=== PATIENT | female | born 1995 | race Caucasian/White ===

== ENCOUNTER 2016-11-16 21:42 | Outpatient (CLI) | payer MEDICAID ==
[~2016-11-16] VITALS: Ht 157.5 cm; Wt 82.3 kg
[~2016-11-16 21:42] MED LIST: IBUP-1542 PO
[2016-11-16 22:06] VITALS: Ht 157.5 cm; Wt 82.3 kg
[2016-11-16 22:07] VITALS: BP 116/59; PULSE 18; RESP 18
[2016-11-16] MEDS ORDERED: FER325 PO (22:54)
[2016-11-16] MEDS ORDERED: PREN1TAB13 PO (22:54)
[2016-11-17] MEDS ORDERED: TERBUTALINE 1 ML ONE (00:22)
[2016-11-17] MEDS ORDERED: LACTATED RINGER'S 1,000 ML IV ONE ×2 (00:30→03:00)
[2016-11-17] MEDS ORDERED: TERBUTALINE 1 MG/ML INJ SC ONE (00:30)
[2016-11-17 01:25] LABS: ADD UMIC YES; URINE BILIRUBIN (Dip) NEGATIVE (NEGATIVE); URINE BLOOD (Dip) TRACE (NEGATIVE); URINE COLOR LT. YELLOW (YELLOW); URINE GLUCOSE (Dip) NEGATIVE (NEGATIVE); URINE KETONES (Dip) NEGATIVE (NEGATIVE); URINE LEUKOCYTE ESTERASE (Dip) NEGATIVE (NEGATIVE); URINE NITRITE (Dip) NEGATIVE (NEGATIVE); URINE TOTAL PROTEIN (Dip) NEGATIVE (NEGATIVE); URINE UROBILINOGEN (Dip) 2.0 E.U./dL (0.1-1.0)
[2016-11-17 01:57] LABS: BACTERIA,URINE OCCASIONAL; SQUAMOUS EPITHELIAL CELL,UR MODERATE
--- NOTE | 2016-11-17 03:03 | QN ---
Documentation Comment Laborist Dr Kathleen/[facility] [address] pt 21 y.o. A3 with an IUP at 35 weeks c/o contractions since 1400 11/16. No VB or leaking. +FM. PMHx: h/o HTN? PSHx: C/S x 3. NKDA. BP 116/59 T=98.4 U/A negative, but very dark. NST: baseline 130-140 bpm with accels to 160 bpm. No decels. UC's q 7 to 10 minutes. Pt was given IV hydration and one dose of terbutaline and her contractions spaced out a lot and the pt reports feeling much better. A: IUP at 35w. False labor. P: continue to try to increase her water intake, 6-8 glasses/day. PTL precautions reviewed. FRANCO GRAFF MD November 17, 2016 03:03
--- NOTE | 2016-11-17 04:22 | TRIAGE ---
OB Triage Datetime Report Generated by CPN: 11/17/2016 04:22 Datetime: 11/17/2016 02:30 Labor Evaluation Frequency: x1 Monitor Mode: External Duration (sec)2399: 50 Pattern: Normal: <= 5 Contractions in 10 Minutes Resting Tone [place]: Relaxed Heart Rate FHR Baseline Rate: 135 Monitor Mode: External US FHR Baseline Changes: No Baseline Change Variability: Moderate 6-25 bpm Accelerations: 15X15 Decelerations: None Category: Category I Datetime: 11/17/2016 00:44 Membrane Status: Intact Datetime: 11/17/2016 00:30 Labor Evaluation Frequency: 5 Monitor Mode: External Duration (sec)2399: 90-100 Quality: Mild Pattern: Normal: <= 5 Contractions in 10 Minutes Resting Tone [place]: Relaxed Heart Rate FHR Baseline Rate: 145 Monitor Mode: External US FHR Baseline Changes: No Baseline Change Variability: Moderate 6-25 bpm Accelerations: 15X15 Decelerations: Variable Category: Category II Datetime: 11/16/2016 23:36 Stage of : OB Triage Labor Evaluation Frequency: 6-9 Monitor Mode: External Duration (sec)2399: 80-110 Quality: Moderate Pattern: Normal: <= 5 Contractions in 10 Minutes Resting Tone [place]: Relaxed Heart Rate FHR Baseline Rate: 140 Monitor Mode: External US Variability: Moderate 6-25 bpm Accelerations: 15X15 Decelerations: None Category: Category I Datetime: 11/16/2016 23:15 Stage of : OB Triage Datetime: 11/16/2016 22:48 Stage of : OB Triage Labor Evaluation Frequency: IRREGULAR Monitor Mode: External Duration (sec)2399: 80-110 Quality: Moderate Pattern: Normal: <= 5 Contractions in 10 Minutes Resting Tone [place]: Relaxed Heart Rate FHR Baseline Rate: 145 Monitor Mode: External US Variability: Moderate 6-25 bpm Accelerations: 15X15 Decelerations: None Category: Category I Datetime: 11/16/2016 22:34 Vaginal Exam Dilatation (cms): 0.0 Effacement (%): 0 Station: -3 Exam By: Jeanne CLINTON RN Vaginal Bleeding: None Cervix, Consistency: Firm Cervix, Position: Posterior Datetime: 11/16/2016 22:26 Stage of : OB Triage EGA: 34.6 Maternal Assessment Level of Consciousness: Fully Conscious DTR's/Clonus: DTRs 2+; No Clonus Headache: Denies Blurred Vision: No Respiratory Effort: Unlabored; Regular Rhythm; Equal Expansion Breath Sounds, Left: Clear and Equal Breath Sounds, Right: Clear and Equal Nausea/Vomiting: Denies RUQ Epigastric Pain: Denies Lower Extremities Edema: None Upper Extremities Edema: None Facial Edema: None Temperature Route: Oral Fall Risk Assessment History of Falling: (0) No Secondary Diagnosis: (0) No Ambulatory Aid: (0) Bedrest/Nurse Assist IV Therapy: (0) No Gait: (0) Normal/Bedrest/Immobile Mental Status: (0) Oriented to Own Ability Fall Score: 0 Fall Risk Score Definition: No Risk: No action required Monitor Mode: External Duration (sec)2399: IRREGULAR Quality: Moderate Pattern: Normal: <= 5 Contractions in 10 Minutes Heart Rate FHR Baseline Rate: 140 Monitor Mode: External US Variability: Moderate 6-25 bpm Accelerations: 15X15 Decelerations: None Category: Category I Pain Assessment Pain Scale: 6 Pain Presence: Intermittent Pain Type: Contraction Pain Location: Abdomen Pain Goal: 3 Datetime: 11/16/2016 22:25 Stage of : OB Triage Assessment Type: Triage Vaginal Exam Dilatation (cms): 0.0 Effacement (%): 0 Station: -3 Exam By: RN Datetime: 11/16/2016 22:24 Time of Arrival: 11/16/2016 21:55 Arrived By: Wheelchair Arrived From: Home Chief Complaint: PT C/O ABDOMEN PAIN Movement: Present Contractions: Regular Time Contractions Began: 11/16/2016 14:00 Rupture of Membranes: Denies Vaginal Bleeding: None Vaginal Discharge: Denies Recent Sexual Intercouse: Denies Abdominal Trauma: Not Applicable Patient Complaints: Contractions Additional Patient Complaints: INITIAL PHYSICAL ASSESSMENT, TOCO AND EFM APPLIED. Time Provider Notified: 11/17/2016 00:20 Provider Notified: DR. GRAFF Initial Plan: UA, IV BOLUS, TERBUTALINE X1 Datetime: 11/16/2016 22:05 Stage of : OB Triage
== END 2016-11-17 03:30 | disposition home health service (06) ==
LOC: L-D 21:42 → OBT 21:42
PROVIDERS: ATTEND Obstetrics & Gynecology
DX: O47.03 False labor before 37 completed weeks of gestation, third trimester (principal); Z3A.35 35 weeks gestation of pregnancy
CPT/HCPCS: 81001; 87086; 96365; J3105; J7120; Z7500; 81003; G0463

== ENCOUNTER 2016-11-26 23:03 | Inpatient (IN) | payer MEDICAID ==
[~2016-11-26] VITALS: Ht 157.5 cm; Wt 89.4 kg
[~2016-11-26 23:03] MED LIST changes: +FER325 PO; +PREN1TAB13 PO
[2016-11-26 23:19] VITALS: Ht 157.5 cm; Wt 89.4 kg
[2016-11-26] MEDS ORDERED: PREN1TAB79 PO (23:19)
[2016-11-26] MEDS ORDERED: FOLI0.8C PO (23:19)
--- NOTE | 2016-11-26 23:35 | HP ---
Date/Time of Note Date/Time of Note DATE: 11/26/16 TIME: 23:28 OB - History Hx of Present Free Text/Dictation Laborist Note 21 YO with IUP at 36.1 weeks and h/o c/s x 3 reports to L&D with c/o UCs. she denies VB or LOF per vagina. she reports good FM. Care: Good Care Ultrasounds: Normal mid trimester US Obstetrical Complications: None Medical Complications: None Past Family/Social History * Past Medical, Surgical, Family and Obstetric Histories reviewed from chart. OB Admission Exam Physical Exam HEENT: WNL Heart: Rhythm Normal Lungs: Clear, Equal Abdomen: WNL Extremities: Normal Reflexes: Normal Cervical Dilatation: None OB Assessment/Plan Other Assessment: 21 YO with IUP at 36.1 weeks and h/o c/s x 3 reports to L&D with c/o UCs. she denies VB or LOF per vagina. she reports good FM. Other plan: IV Hydration Procardia Admit for observation possible need for premature d/w pt will start steroids (she is not diabetic and never had steroids) CONSTANZA BAKER MD November 26, 2016 23:35
[2016-11-27] VITALS (8 sets, daily range): BP systolic 91–126; BP diastolic 44–68; PULSE 75–108; RESP 18–20
[2016-11-27] MEDS ORDERED: morphine 10 MG INJ IM PRN
[2016-11-27] MEDS ORDERED: BETAMET NA PHOS/AC(6 MG/ML) 5ML INJ IM ONE
[2016-11-27] MEDS ORDERED: OXYTOCIN 30 UNITS/LR 500 ML IV SCH
[2016-11-27] MEDS ORDERED: CEFAZOLIN 2 GM/50 ML (PMX) 50 ML IV SCH
[2016-11-27] MEDS ORDERED: LACTATED RINGER'S 1,000 ML IV ONE
--- NOTE | 2016-11-27 00:24 | RADRPT ---
PROCEDURE: Obstetrical ultrasound greater than 14 weeks CLINICAL INDICATION: labor TECHNIQUE: Real time sonographic imaging of the gravid uterus is performed transabdominally and mu ltiple static joshua scale and Doppler images are submitted for review as are measurements. The image s are reviewed on the PACS. COMPARISON: No relevant exams are available FINDINGS: There is a single living intrauterine gestation in cephalic presentation. The heart beat is estimated at 157 bpm. The measurements are as follows: BPD:8.65 cm HC:41.78 cm AC:34.14 cm FL:7.40 cm Estimated gestational age is 36 weeks 4 days. The estimated date of delivery is 12/20/2016. The estimated weight is 3184 grams. Placenta is posterior and gradeII. There is no evidence of placenta previa or abruption. RPTAT:HJJR IMPRESSION: 1. Single viable intrauterine gestation in cephalic presentation estimated at 36 weeks 4 days with t he estimated date of delivery 12/20/2016. 2. Estimated weight 3184 g (7 pounds). Physician Estrellita Date Time Electronically viewed and signed by Physician Estrellita on 11/27/2016 00:24 JR/
[2016-11-27] MEDS: NIFEdipine 10 MG CAP PO SCH ×2 (00:37→01:46)
[2016-11-27 00:40] LABS: ADD SCAN DIFF NO
[2016-11-27 00:42] LABS: BASOPHILS % 0.2 % (0.0-2.0); EOSINOPHILS # 0.1 10^3/ul (0.0-0.5); EOSINOPHILS % 1.4 % (0.0-7.0); HEMOGLOBIN 11.2 g/dl (12.0-16.0); LYMPHOCYTES # 1.6 10^3/ul (0.8-2.9); LYMPHOCYTES % 17.2 % (15.0-51.0); MEAN CORPUSCULAR HGB CONC 33.9 g/dl (32.0-37.0); MEAN CORPUSCULAR VOLUME 85.5 fl (82.0-101.0); MONOCYTE # 0.5 10^3/ul (0.3-0.9); MONOCYTES % 5.6 % (0.0-11.0); NEUTROPHIL # 6.9 10^3/ul (1.6-7.5); NEUTROPHILS % 75.2 % (39.0-77.0); PLATELET COUNT 262 10^3/UL (140-415); RED BLOOD COUNT 3.86 10^6/ul (4.20-5.40); RED CELL DISTRIBUTION WIDTH 13.2 % (11.5-14.5); WHITE BLOOD COUNT 9.2 10^3/ul (4.8-10.8)
[2016-11-27 00:55] LABS: INR 0.9; PARTIAL THROMBOPLASTIN TIME 24.8 Sec (25.0-35.0); PROTIME 12.1 Sec (12.2-14.2); PT RATIO 0.9
[2016-11-27 01:10] LABS: ADD UMIC NO; URINE BILIRUBIN (Dip) NEGATIVE (NEGATIVE); URINE BLOOD (Dip) NEGATIVE (NEGATIVE); URINE COLOR YELLOW (YELLOW); URINE GLUCOSE (Dip) NEGATIVE (NEGATIVE); URINE KETONES (Dip) NEGATIVE (NEGATIVE); URINE LEUKOCYTE ESTERASE (Dip) NEGATIVE (NEGATIVE); URINE NITRITE (Dip) NEGATIVE (NEGATIVE); URINE TOTAL PROTEIN (Dip) NEGATIVE (NEGATIVE); URINE UROBILINOGEN (Dip) 0.2 E.U./dL (0.1-1.0)
[2016-11-27] MEDS ORDERED: NIFEdipine 10 MG CAP PO ONE (02:00)
[2016-11-27] MEDS: LACTATED RINGER'S 1,000 ML IV SCH ×2 (04:07→07:45)
--- NOTE | 2016-11-27 04:28 | TRIAGE ---
OB Triage Datetime Report Generated by CPN: 11/27/2016 04:28 Datetime: 11/27/2016 04:00 Labor Evaluation Frequency: 2-11 Monitor Mode: External Duration (sec)2399: 40-120 Quality: Moderate Pattern: Normal: <= 5 Contractions in 10 Minutes Resting Tone [place]: Relaxed Heart Rate FHR Baseline Rate: 135 Monitor Mode: External US FHR Baseline Changes: No Baseline Change Variability: Moderate 6-25 bpm Accelerations: 10X10 Decelerations: None Category: Category I Comments: Moderate variability with periods of minimal variability. Loss of FHR contact d/t pt mov ement with UCs and pt obesity. Datetime: 11/27/2016 03:28 Stage of : Labor Assessment Type: Ongoing Assessment Maternal Assessment Level of Consciousness: Fully Conscious DTR's/Clonus: DTRs 2+; No Clonus Headache: Denies Blurred Vision: No Respiratory Effort: Unlabored; Regular Rhythm; Equal Expansion Breath Sounds, Left: Clear and Equal Breath Sounds, Right: Clear and Equal Nausea/Vomiting: Denies RUQ Epigastric Pain: Denies Lower Extremities Edema: None Degree: None Upper Extremities Edema: None Degree: None Facial Edema: None Fall Risk Assessment History of Falling: (0) No Secondary Diagnosis: (0) No Ambulatory Aid: (0) Bedrest/Nurse Assist IV Therapy: (20) Yes Gait: (0) Normal/Bedrest/Immobile Mental Status: (0) Oriented to Own Ability Fall Score: 20 Fall Risk Score Definition: No Risk: No action required Pain Assessment Pain Scale: 10 Pain Presence: Intermittent Pain Type: Contraction; Pressure Pain Location: Abdomen; Back Pain Goal: 2 Pain Relief Measures: Comfort Measures Pain Assessment Comments: Pt states that pain medications have been ineffective. Datetime: 11/27/2016 03:02 Stage of : Labor Datetime: 11/27/2016 02:16 Assessment Type: Admission Assessment Vaginal Bleeding: None Maternal Assessment Level of Consciousness: Fully Conscious DTR's/Clonus: DTRs 2+; No Clonus Headache: Denies Blurred Vision: No Respiratory Effort: Unlabored; Regular Rhythm; Equal Expansion Breath Sounds, Left: Clear and Equal Breath Sounds, Right: Clear and Equal Nausea/Vomiting: Denies RUQ Epigastric Pain: Denies Facial Edema: None Fall Risk Assessment History of Falling: (0) No Secondary Diagnosis: (0) No Ambulatory Aid: (0) Bedrest/Nurse Assist Gait: (0) Normal/Bedrest/Immobile Mental Status: (0) Oriented to Own Ability Pain Assessment Pain Scale: 9 Pain Presence: Intermittent Pain Type: Contraction Pain Location: Abdomen; Back Pain Goal: 2 Datetime: 11/27/2016 02:00 Labor Evaluation Frequency: irregular Monitor Mode: External Quality: Moderate Pattern: Normal: <= 5 Contractions in 10 Minutes Resting Tone [place]: Relaxed Contraction Comments: unable to rock picker uc's, pain in back Heart Rate FHR Baseline Rate: 145 Monitor Mode: External US FHR Baseline Changes: No Baseline Change Variability: Moderate 6-25 bpm Accelerations: 15X15 Decelerations: None Category: Category I Datetime: 11/27/2016 00:59 Labor Evaluation Frequency: 8 Monitor Mode: External Duration (sec)2399: 50-70 Quality: Moderate Pattern: Normal: <= 5 Contractions in 10 Minutes Resting Tone [place]: Relaxed Heart Rate FHR Baseline Rate: 145 Monitor Mode: External US FHR Baseline Changes: No Baseline Change Variability: Moderate 6-25 bpm Accelerations: 15X15 Decelerations: None Category: Category I Datetime: 11/26/2016 23:59 Labor Evaluation Frequency: 2-8 Monitor Mode: External Duration (sec)2399: 40-120 Quality: Moderate Pattern: Normal: <= 5 Contractions in 10 Minutes Resting Tone [place]: Relaxed Heart Rate FHR Baseline Rate: 145 Monitor Mode: External US FHR Baseline Changes: No Baseline Change Variability: Moderate 6-25 bpm Accelerations: 15X15 Decelerations: None Category: Category I Datetime: 11/26/2016 23:15 Stage of : OB Triage Vaginal Exam Dilatation (cms): 0.5 Effacement (%): 60 Station: -2 Exam By: PADILLA Rodriguez Membrane Status: Intact Vaginal Bleeding: None Datetime: 11/26/2016 23:11 Stage of : OB Triage Assessment Type: Triage Maternal Assessment Level of Consciousness: Fully Conscious DTR's/Clonus: DTRs 2+; No Clonus Headache: Temporal; Bilateral; Frontal Blurred Vision: No Respiratory Effort: Unlabored; Regular Rhythm; Equal Expansion Breath Sounds, Left: Clear and Equal Breath Sounds, Right: Clear and Equal Nausea/Vomiting: Denies RUQ Epigastric Pain: Denies Lower Extremities Edema: None Degree: None Upper Extremities Edema: None Degree: None Facial Edema: None Temperature Route: Oral Fall Risk Assessment History of Falling: (0) No Secondary Diagnosis: (0) No Ambulatory Aid: (0) Bedrest/Nurse Assist IV Therapy: (0) No Gait: (0) Normal/Bedrest/Immobile Mental Status: (0) Oriented to Own Ability Fall Score: 0 Fall Risk Score Definition: No Risk: No action required Pain Assessment Pain Scale: 9 Pain Presence: Intermittent Pain Type: Cramping; Contraction Pain Location: Abdomen; Back Pain Relief Measures: Comfort Measures Datetime: 11/26/2016 23:10 Monitor Mode: External Contraction Comments: [place] applied Heart Rate FHR Baseline Rate: 150 Monitor Mode: External US Comments: EFM applied Datetime: 11/26/2016 23:09 Time of Arrival: 11/26/2016 22:59 EGA: 36.2 Arrived By: Wheelchair Arrived From: Home Movement: Present Contractions: Regular Time Contractions Began: 11/26/2016 19:00 Contractions: q5mins Rupture of Membranes: Denies Vaginal Bleeding: None Vaginal Discharge: Denies Abdominal Trauma: Not Applicable Patient Complaints: Contractions; Cramping; Back Pain Time Provider Notified: 11/26/2016 23:20 Provider Notified: Initial Plan: EFM x2, VE Datetime: 11/16/2016 22:26 EGA: 34.6 Fall Score: 0 Fall Risk Score Definition: No Risk: No action required
[2016-11-27] MEDS ORDERED: CITRIC ACID/NA CITRATE 30 ML CUP PO ONE (07:30)
[2016-11-27] MEDS ORDERED: CITRIC ACID/SODIUM CITRATE 15 ML CUP ONE (07:34)
[2016-11-27] MEDS ORDERED: morphine SULFATE/PF (10 MG/10 ML) INJ ONE (07:35)
[2016-11-27] MEDS ORDERED: METOCLOPRAMIDE 10 MG INJ ONE (07:35)
[2016-11-27] MEDS ORDERED: KETOROLAC 30 MG INJ ONE (07:35)
[2016-11-27] MEDS ORDERED: EPHEDrine SULFATE 50 MG/5 ML SYG ONE (08:38)
[2016-11-27] MEDS ORDERED: FENTAnyl 50 MCG/ML VIAL ONE (09:29)
[2016-11-27] MEDS ORDERED: MIDAZOLAM 1 MG/ML 2 ML INJ ONE (09:29)
[2016-11-27] MEDS ORDERED: MEPERIDINE 25 MG INJ IV PRN (09:30)
[2016-11-27] MEDS ORDERED: ONDANSETRON 4 MG INJ IV PRN ×2 (09:30→10:00)
[2016-11-27] MEDS ORDERED: METOCLOPRAMIDE 10 MG INJ IV PRN (09:30)
[2016-11-27] MEDS ORDERED: DIPHENHYDRAMINE 50 MG INJ IV PRN ×2 (09:30→10:00)
[2016-11-27] MEDS ORDERED: HYDROmorphONE (0.2 MG/ML) 10ML SYG IV PRN ×3 (09:30)
[2016-11-27] MEDS ORDERED: KETOROLAC 30 MG INJ IV PRN (10:00)
[2016-11-27] MEDS ORDERED: NALOXONE (0.4 MG/ML) INJ IV PRN (10:00)
[2016-11-27] MEDS ORDERED: HYDROmorphONE 1 MG/ML SYG IV PRN ×3 (10:00)
--- NOTE | 2016-11-27 10:53 | OPR ---
DATE OF OPERATION: 11/27/2016 PREOPERATIVE DIAGNOSES: 1. Intrauterine at 36 weeks and 4 days. 2. History of three previous sections in active labor. POSTOPERATIVE DIAGNOSES: 1. Intrauterine at 36 weeks and 3 days. 2. History of three previous sections, in active labor. PROCEDURE: Repeat transverse low cervical section for the 4th time. SURGEON: Nasrin Kathleen MD [employer]: Shawnee Chester MD ANESTHESIA: Spinal. ANESTHESIOLOGIST: Juany Barraza MD FINDINGS: Live baby boy, 9 and 9. Baby weighed 3020 grams, 6 pounds 11 ounces. DETAILS OF THE PROCEDURE: Under satisfactory spinal anesthesia, the patient was prepped and draped and placed in supine position, tilted to the left. Pfannenstiel incision was made. Old scar was re moved. Incision carried through the subcutaneous tissue. Bleeders brought under control with elect rocautery. Fascia incised to the length of the incision. Rectus muscle divided in midline. Perito neum exposed. Upon entry into the abdomen, noted the lower segment of the uterus was extremely thin kinza out to the thickness of 1 to 2 mm. Bladder flap was developed. Transverse incision was made in the lower segment of the uterus. Amniotic sac ruptured. Clear amniotic fluid noted. Live baby mariam y was delivered from unengaged vertex with a nuchal cord around the baby's neck tight. Nasal oropha ryngeal suction was performed. Baby handed to the team for immediate attention. Patient r eceived 20 units of Pitocin. Placenta delivered manually intact. Uterine cavity cleaned with wet s ponge and drainage established. Uterus closed in 2 layers using Monocryl #1 in continuous fashion. Peritoneal cavity irrigated with warm saline. Sponge, needle and instrument reported to be correct . Abdominal peritoneum closed with 2-0 chromic catgut continuously. Rectus muscle approximated wit h 2 interrupted 2-0 chromic catgut. Fascia closed with #1 PDS in a continuous fashion. Subcutaneou s tissue approximated with 2-0 chromic catgut. Skin closed with tata. Estimated blood loss 600 mL. Urine bag contained 200 mL of clear urine. Patient tolerated procedure well, transferred to re covery room in a good condition. Dictated By: NASRIN LIM/NTS Conf#: [id number] DID#: [id number] CC: SHAWNEE CHESTER MD;*End*
[2016-11-27] MEDS ORDERED: OXYCODONE/ACETAMINOPHEN (5/325) TAB PO PRN (13:30)
[2016-11-27] MEDS ORDERED: CEFAZOLIN 1 GM/50 ML (PMX) 50 ML IVPB SCH (13:30)
[2016-11-27] MEDS ORDERED: MISOPROSTOL 200 MCG TAB PR PRN ×2 (13:30)
[2016-11-27] MEDS ORDERED: ACETAMINOPHEN/CODEINE #3 TAB PO PRN ×2 (13:30)
[2016-11-27] MEDS ORDERED: CARBOPROST 250 MCG INJ IM PRN ×2 (13:30)
[2016-11-27] MEDS ORDERED: LANOLIN 7 GM TUBE TOP PRN (13:30)
[2016-11-27] MEDS ORDERED: OXYTOCIN 30 UNITS/LR 500 ML IV PRN ×2 (13:30)
[2016-11-27] MEDS ORDERED: METHYLERGONOVINE 0.2 MG INJ IM PRN ×2 (13:30)
[2016-11-27] MEDS: OXYTOCIN 30 UNITS/LR 500 ML IV SCH ×2 (14:32→20:04)
--- NOTE | 2016-11-27 16:21 | PD.PPDC ---
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 Discharge Instruction Condition Patient Condition: Good Diet Diet: Resume Regular Diet Activity/Restrictions Activity: Normal Activity May Shower Restrictions: No Exercising No Lifting No Driving No Sexual Activity Nothing in the Vagina No [place] No Tampons, douche Follow-up Follow-up with Physician: 2, Week/Weeks Provider Information: Appointment clinic in 2 weeks for checkup Return to clinic for [facility]ER Instructions: Fever greater than 101 Worsening abdominal pain Excessive Vaginal Bleeding More than 2 pads per hour Unable to tolerate diet OB Instructions: Breast Tenderness Depression Blurried Vision Headache NASRIN CLARKE MD November 27, 2016 16:21
[2016-11-27] MEDS: SENNA/DOCUSATE NA (8.6MG/50MG) TAB PO SCH (20:39)
[2016-11-28] VITALS: BP 100/52; PULSE 70; RESP 18
[2016-11-28] MEDS: LACTATED RINGER'S 1,000 ML IV SCH ×3 (00:13→15:30)
[2016-11-28 04:25] VITALS: BP 98/50; PULSE 84; RESP 16
[2016-11-28] MEDS: IBUPROFEN 600 MG TAB PO SCH ×4 (06:00→23:32)
[2016-11-28 08:16] LABS: ADD SCAN DIFF NO
[2016-11-28 08:22] LABS: BASOPHILS % 0.1 % (0.0-2.0); EOSINOPHILS % 0.3 % (0.0-7.0); HEMATOCRIT 26.9 % (37.0-47.0); HEMOGLOBIN 8.8 g/dl (12.0-16.0); LYMPHOCYTES # 1.4 10^3/ul (0.8-2.9); LYMPHOCYTES % 15.3 % (15.0-51.0); MEAN CORPUSCULAR HEMOGLOBIN 28.7 pg (29.0-33.0); MEAN CORPUSCULAR HGB CONC 32.7 g/dl (32.0-37.0); MEAN CORPUSCULAR VOLUME 87.6 fl (82.0-101.0); MONOCYTE # 0.6 10^3/ul (0.3-0.9); MONOCYTES % 6.5 % (0.0-11.0); NEUTROPHILS % 77.1 % (39.0-77.0); PLATELET COUNT 217 10^3/UL (140-415); RED BLOOD COUNT 3.07 10^6/ul (4.20-5.40); RED CELL DISTRIBUTION WIDTH 13.5 % (11.5-14.5); WHITE BLOOD COUNT 9.1 10^3/ul (4.8-10.8)
[2016-11-28 08:30] VITALS: BP 107/52; PULSE 89; RESP 18
--- NOTE | 2016-11-28 09:40 | PN ---
Date/Time of Note Date/Time of Note DATE: 11/28/16 TIME: 09:39 OB Subjective Subjective Subjective Post day 1 Afebrile vital signs stable abdomen soft lochia moderate bowel sounds present incision dry extremities normal ambulation encouraged NASRIN CLARKE MD November 28, 2016 09:40
[2016-11-28] MEDS: SENNA/DOCUSATE NA (8.6MG/50MG) TAB PO SCH ×3 (09:45→21:11)
[2016-11-28 16:00] VITALS: BP 104/59; PULSE 90
--- NOTE | 2016-11-28 18:42 | PN ---
Date/Time of Note Date/Time of Note DATE: 11/28/16 TIME: 18:39 Assessment/Plan VTE Prophylaxis VTE Prophylaxis Intervention: ambulation Lines/Catheters IV Catheter Type (from Nrsg): Peripheral IV Subjective 24 Hr Interval Summary Free Text/Dictation anesthesia note: A 21 female post dura,orph for post op pain POD #1 is doing well, no headache, itching, n/v, pain is controlled. back is clean. care per surgery team Exam/Review of Systems Vital Signs Vitals Vital Signs Date Time Temp Pulse Resp B/P Pulse Ox O2 Delivery O2 Flow Rate FiO2 11/28/16 16:00 98.5 90 104/59 Room Air 11/28/16 08:30 18 Intake and Output 11/27/16 11/27/16 11/28/16 15:00 23:00 07:00 Intake Total 1720 ml 575 ml 1245 ml Output Total 850 ml 700 ml 1250 ml Balance 870 ml -125 ml -5 ml Results Result Diagram: 11/28/16 0725 Results 24 hrs Laboratory Tests Test 11/28/16 07:25 White Blood Count 9.1 Red Blood Count 3.07 #L Hemoglobin 8.8 #L Hematocrit 26.9 L Mean Corpuscular Volume 87.6 Mean Corpuscular Hemoglobin 28.7 L Mean Corpuscular Hemoglobin Concent 32.7 Red Cell Distribution Width 13.5 Platelet Count 217 Mean Platelet Volume 11.0 H Neutrophils % 77.1 H Lymphocytes % 15.3 Monocytes % 6.5 Eosinophils % 0.3 Basophils % 0.1 Nucleated Red Blood Cells % 0.0 Neutrophils # 7.0 Lymphocytes # 1.4 Monocytes # 0.6 Eosinophils # 0.0 Basophils # 0.0 Nucleated Red Blood Cells # 0.0 Medications Medications Current Medications Acetaminophen/ Codeine Phosphate (Tylenol No.3) 1 tab Q4H PRN PO PAIN LEVEL 4-6 ; Start 11/27/16 at 13:30 Acetaminophen/ Codeine Phosphate (Tylenol No.3) 2 tab Q4H PRN PO PAIN LEVEL 7- 10; Start 11/27/16 at 13:30 Oxycodone/ Acetaminophen (Percocet (5/ 325)) 1 tab Q4H PRN PO PAIN LEVEL 4-6 Last administered on 11/28/16t 09:58; Admin Dose 1 TAB; Start 11/27/16 at 13:30 Oxycodone/ Acetaminophen (Percocet (5/ 325)) 2 tab Q4H PRN PO PAIN LEVEL 7-10; Start 11/27/16 at 13:30 Ibuprofen (Motrin) 600 mg Q6 PO Last administered on 11/28/16 18:03; Admin Dose 600 MG; Start 11/28/16 at 06:00 Simethicone (Mylicon) 160 mg Q8H PRN PO DISTENSION/GAS/BLOATING; Start at 13:30 Senna/Docusate Sodium (Senokot-S) 1 tab BID PO Last administered on 11/28/16 09:58; Admin Dose 1 TAB; Start 11/27/16 at 21:00 Diphtheria/ Tetanus/Acell Pertussis 0.5 ml 0.5 ml ONCE ONCE IM* ; Start at 09:00; Stop 11/30/16 at 09:01 Oxytocin/Lactated Ringer's 500 ml @ 0 mls/hr ONCE PRN IV For Hemorrhage Management; Start 11/27/16 at 13:30 Methylergonovine Maleate (Methergine) 0.2 mg ONCE PRN IM VAGINAL BLEEDING; Start 11/27/16 at 13:30 Carboprost Tromethamine (Hemabate) 250 mcg ONCE PRN IM VAGINAL BLEEDING; Start 11/27/16 at 13:30 Misoprostol 1000 mcg 1,000 mcg ONCE PRN NE VAGINAL BLEEDING; Start 11/27/16 at 13:30 Oxytocin/Lactated Ringer's 500 ml @ 125 mls/hr Q4H IV Last administered on 20:04; Admin Dose 125 MLS/HR; Start 11/27/16 at 13:15 Lactated Ringer's (Lr) 1,000 ml @ 125 mls/hr Q8H IV Last administered on 00:13; Admin Dose 125 MLS/HR; Start 11/27/16 at 23:30 RINKU MOURA MD November 28, 2016 18:42
[2016-11-28 19:30] VITALS: BP 105/56; PULSE 103; RESP 17
[2016-11-29 04:00] VITALS: BP 103/65; PULSE 80; RESP 18
[2016-11-29] MEDS: IBUPROFEN 600 MG TAB PO SCH ×4 (05:22→23:43)
[2016-11-29 08:30] VITALS: BP 109/65; PULSE 87; RESP 18
[2016-11-29] MEDS: SENNA/DOCUSATE NA (8.6MG/50MG) TAB PO SCH ×2 (08:55→21:14)
[2016-11-29] MEDS: OXYCODONE/ACETAMINOPHEN (5/325) TAB PO PRN ×2 (08:56→20:20)
--- NOTE | 2016-11-29 10:00 | PN ---
Date/Time of Note Date/Time of Note DATE: 11/29/16 TIME: 09:59 OB Subjective Subjective Subjective Post due to Post day 2 Afebrile VSs stable abdomen soft incision dry lochia moderate bowel sounds present no bowel movement extremity normal .enema ordered plan of a.m. discharge discussed NASRIN CLARKE MD November 29, 2016 10:00
[2016-11-29 16:00] VITALS: BP 114/56; PULSE 87
[2016-11-29 19:50] VITALS: BP 113/73; PULSE 93; RESP 18
[2016-11-30 03:50] VITALS: BP 116/61; PULSE 80; RESP 20
[2016-11-30] MEDS: IBUPROFEN 600 MG TAB PO SCH ×2 (05:39→11:48)
[2016-11-30 08:00] VITALS: BP 107/53; PULSE 81; RESP 18
[2016-11-30] MEDS ORDERED: DIPHTH/TET/ACEL PERTUSS (ADULT) 0.5 ML VIAL IM* ONE (09:00)
[2016-11-30] MEDS: SENNA/DOCUSATE NA (8.6MG/50MG) TAB PO SCH (09:00)
--- NOTE | 2016-12-01 13:00 | DS ---
Date/Time of Note Date/Time of Note DATE: 12/01/16 TIME: 12:58 Discharge Summary Admission/Discharge Info Admit Date/Time November 26, 2016 at 23:20 Discharge Date/Time November 30, 2016 at 16:30 Final Diagnosis Post repeat Patient Condition: Good Procedures Repeat Hx of Present Illness Term history of 3 previous Hospital Course Satisfactory Home Meds Reported Medications Folic Acid (Folic Acid) 0.8 Mg Capsule, 0.8 MG PO DAILY, CAP 11/26/16 Vit W-Ca,Fe,FA(<1 mg) ( Vitamins) 1 Each Tablet, 1 EACH PO DAILY, TAB 11/26/16 Ferrous Sulfate* (Ferrous Sulfate*) 325 Mg Tabec, 325 MG PO DAILY, TAB 11/16/16 Pnv95/Ferrous Fumarate/FA ( Vitamins Tablet) 1 Each Tablet, 1 EACH PO, TAB 11/16/16 Ibuprofen* (Ibuprofen*) 600 Mg Tablet, 600 MG PO Q4 Y for PAIN, TAB 04/22/14 Follow-up Plan Post instructions given recommended to make appointment in 4 days to ANTON payton Primary Care Provider Care Physician No Primary Time spent on discharge: < 30 minutes Pending Labs Laboratory Tests Test 12/01/16 08:35 Lab Scanned Report REFERENCE [id number] NASRIN CLARKE MD December 01, 2016 13:00
== END 2016-11-30 16:30 | disposition home or self-care (01) | DRG 766 ==
LOC: L-D 23:03 → OBT 23:03 → L-D 23:20 → OBT 23:20 → L-D 11-27 01:20 → PP1 11-27 12:45
PROVIDERS: ADMIT Obstetrics & Gynecology; ATTEND Obstetrics & Gynecology
PROC: 4A1HX4Z Monitoring of Products of Conception, Cardiac Electrical Activity, External Approach (ICD-10-PCS; 2016-11-26)
PROC: 10D00Z1 Extraction of Products of Conception, Low, Open Approach (ICD-10-PCS; principal; 2016-11-27 09:00)
PROC: 3E0234Z Introduction of Serum, Toxoid and Vaccine into Muscle, Percutaneous Approach (ICD-10-PCS; 2016-11-30)
DX: O60.14X0 Preterm labor third trimester with preterm delivery third trimester, not applicable or unspecified (principal); O34.211 Maternal care for low transverse scar from previous cesarean delivery; Z3A.36 36 weeks gestation of pregnancy; Z37.0 Single live birth; Z23 Encounter for immunization
CPT/HCPCS: 36415; 76815; 81003; 85025; 85610; 85730; 86592; 86703; 86850; 86900; 86901; 86920; 87340; 90715; 96360; 96365; 96372; 99464; G0463; J0690; J0702; J1885; J2250; J2270; J2274; J2590; J2765; J3010; J7120

== ENCOUNTER 2018-02-10 20:24 | Emergency (ER) | END 2018-02-10 21:29 | disposition home or self-care (01) ==

== ENCOUNTER 2018-10-29 14:58 | Emergency (ER) | payer MEDICAID ==
[~2018-10-29] VITALS: Ht 154.9 cm; Wt 94.9 kg
[~2018-10-29 14:58] MED LIST changes: +FOLI0.8C PO; +PRED20TA PO; +PREN1TAB79 PO; +TRIA15CR55 TOP
[2018-10-29 15:05] VITALS: BP 118/57; PULSE 81; RESP 18; Ht 154.9 cm; Wt 94.9 kg
[2018-10-29] MEDS ORDERED: ONDANSETRON 4 MG INJ IV STA (15:34)
[2018-10-29] MEDS ORDERED: KETOROLAC 30 MG INJ IV STA (15:34)
[2018-10-29] MEDS ORDERED: SOD CHLORIDE 0.9% 500 ML IV ONE (16:00)
[2018-10-29] MEDS ORDERED: ONDA4TAB14 PO (16:50)
[2018-10-29] MEDS ORDERED: BENZ-6 PO (16:50)
[2018-10-29] MEDS ORDERED: BUTA1CAP38 PO (16:50)
--- NOTE | 2018-10-29 17:02 | ERD ---
ER Documentation Chief Complaint Chief Complaint Abd pain with N/V x 1 day, denies fever head pain x 2 weeks HPI 23-year-old female patient with no significant past medical history presents to ED complaining of abdominal pain that started yesterday. States that she has had a few episodes of nausea, vomiting. Patient reports that she is also had a dry cough as well as a headache that is associated with photosensitivity and phonophobia. Denies any head or neck injuries. Reports that should her abdominal pain is mainly in the epigastric region. Denies any chest pain, shortness of breath, fever, chills, neck stiffness, dysuria, urgency, frequency. ROS All systems reviewed and are negative except as per history of present illness. Medications Home Meds Active Scripts Benzonatate* (Tessalon Perle*) 100 Mg Capsule, 100 MG PO Q8H PRN for COUGH, #20 CAP Prov:JAJA HIGUERA PA-C 10/29/18 Ondansetron (Ondansetron Odt) 4 Mg Tab.rapdis, 4 MG PO Q6H PRN for NAUSEA AND/OR VOMITING, #10 TAB Prov:JAJA HIGUERA PA-C 10/29/18 Ylwjhlseat-Capbgtxnrrsfx-Xmskauyg* (Fioricet*) 50-300-40 Mg Capsule, 1 CAP PO Q4H PRN for HEADACHE, #20 CAP Prov:JAJA HIGUERA PA-C 10/29/18 Prednisone* (Prednisone*) 20 Mg Tab, 60 MG PO DAILY for 5 Days, TAB Prov:WHITNEY MOONEY NP 02/10/18 Triamcinolone Acetonide (Triamcinolone Acetonide) 0.1% - 15 Gm Cream.gm., 1 APPLIC TOP BID, #1 TUB Prov:WHITNEY MOONEY NP 02/10/18 Reported Medications Folic Acid (Folic Acid) 0.8 Mg Capsule, 0.8 MG PO DAILY, CAP 11/26/16 Vit W-Ca,Fe,FA(<1 mg) ( Vitamins) 1 Each Tablet, 1 EACH PO DAILY, TAB 11/26/16 Ferrous Sulfate* (Ferrous Sulfate*) 325 Mg Tabec, 325 MG PO DAILY, TAB 11/16/16 Pnv95/Ferrous Fumarate/FA ( Vitamins Tablet) 1 Each Tablet, 1 EACH PO, TAB 11/16/16 Ibuprofen* (Ibuprofen*) 600 Mg Tablet, 600 MG PO Q4 PRN for PAIN, TAB 04/22/14 Allergies Allergies: Coded Allergies: No Known Drug Allergies (Verified Allergy, Unknown, 02/10/18) PMhx/Soc History of Surgery: Yes () Anesthesia Reaction: No Hx Neurological Disorder: No Hx Respiratory Disorders: No Hx Cardiac Disorders: No Hx Psychiatric Problems: No Hx Miscellaneous Medical Probl: No Hx Alcohol Use: No Hx Substance Use: No Hx Tobacco Use: No Smoking Status: Never smoker FmHx Family History: No diabetes, No coronary disease Physical Exam Vitals Vital Signs Date Temp Pulse Resp B/P (MAP) Pulse Ox O2 O2 Flow FiO2 Time Delivery Rate 10/29/18 98.5 81 18 118/57 97 15:05 (77) Physical Exam Const: Txe-keg-ohcnsgyoe, well-nourished. In no acute distress. Head: Atraumatic, normocephalic Eyes: Normal Conjunctiva without injection. No purulent discharge. ENT: Normal external ear, nose. Moist oropharynx without tonsillar exudates. Non-erythematous pharynx. Uvula midline. No drooling. No trismus. Neck: No cervical midline tenderness. Full range of motion. No meningismus. No cervical lymphadenopathy. No JVD. Resp: Clear to auscultation bilaterally. No wheezing, rhonchi, rales, or crackles. No accessory muscle use. No retractions. Cardio: Regular rate and rhythm. No murmurs, rubs or gallops. Abd: Soft, nontender, non distended. Normal bowel sounds. No palpable masses. No rebound tenderness. No guarding. Negative McBurney's point. Negative psoas sign. Negative obturator sign. Skin: No petechiae or rashes Back: No midline tenderness. No CVA tenderness. Ext: No cyanosis, or edema. Neur: Awake and alert. Normal gait. Normal coordination. Psych: Normal Mood and Affect Result Diagram: 10/29/18 1552 10/29/18 1552 Results 24 hrs Laboratory Tests Test 10/29/18 15:51 10/29/18 15:52 POC Beta HCG, Qualitative NEGATIVE White Blood Count 9.0 10^3/ul Red Blood Count 4.61 10^6/ul Hemoglobin 13.3 g/dl Hematocrit 40.4 % Mean Corpuscular Volume 87.6 fl Mean Corpuscular Hemoglobin 28.9 pg Mean Corpuscular Hemoglobin Concent 32.9 g/dl Red Cell Distribution Width 13.2 % Platelet Count 426 10^3/UL Mean Platelet Volume 10.2 fl Immature Granulocytes % 0.900 % Neutrophils % 70.3 % Lymphocytes % 19.9 % Monocytes % 5.9 % Eosinophils % 2.4 % Basophils % 0.6 % Nucleated Red Blood Cells % 0.0 /100WBC Immature Granulocytes # 0.080 10^3/ul Neutrophils # 6.4 10^3/ul Lymphocytes # 1.8 10^3/ul Monocytes # 0.5 10^3/ul Eosinophils # 0.2 10^3/ul Basophils # 0.1 10^3/ul Nucleated Red Blood Cells # 0.0 10^3/ul Urine Color YELLOW Urine Clarity CLOUDY Urine pH 6.0 Urine Specific Greer 1.018 Urine Ketones NEGATIVE mg/dL Urine Nitrite NEGATIVE mg/dL Urine Bilirubin NEGATIVE mg/dL Urine Urobilinogen 1+ mg/dL Urine Leukocyte Esterase NEGATIVE Darius/ul Urine Microscopic RBC 16 /HPF Urine Microscopic WBC 3 /HPF Urine Squamous Epithelial Cells FEW /HPF Urine Bacteria FEW /HPF Urine Hemoglobin 3+ mg/dL Urine Glucose NEGATIVE mg/dL Urine Total Protein NEGATIVE mg/dl Sodium Level 142 mmol/L Potassium Level 4.2 mmol/L Chloride Level 106 mmol/L Carbon Dioxide Level 29 mmol/L Anion Gap 7 Blood Urea Nitrogen 12 mg/dl Creatinine 0.66 mg/dl Est Glomerular Filtrat Rate mL/min > 60 mL/min Glucose Level 95 mg/dl Calcium Level 9.5 mg/dl Total Bilirubin 0.2 mg/dl Direct Bilirubin 0.00 mg/dl Indirect Bilirubin 0.2 mg/dl Aspartate Amino Transf (AST/SGOT) 41 IU/L Alanine Aminotransferase (ALT/SGPT) 48 IU/L Alkaline Phosphatase 158 IU/L Total Protein 7.8 g/dl Albumin 4.4 g/dl Globulin 3.40 g/dl Albumin/Globulin Ratio 1.29 Lipase 157 U/L Current Medications Medications Dose Sig/Jerson Start Time Status Last (Trade) Ordered Route PRN Stop Time Admin Dose Reason Admin Ketorolac 30 mg ONCE STAT 10/29/18 DC 4/16/19 Tromethamine IV 15:34 15:59 (Toradol) 10/29/18 15:38 Ondansetron 4 mg ONCE STAT 10/29/18 DC 10/29/18 HCl (Zofran IV 15:34 15:59 Inj) 10/29/18 15:38 Sodium 500 ml @ Q1H ONCE 10/29/18 10/29/18 Chloride 500 mls/hr IV 16:00 15:59 10/29/18 16:59 Procedures/MDM 23-year-old female patient with no significant past medical history presents to ED complaining of abdominal pain that started associated with nausea, vomiting, cough and headache. Patient is afebrile and nontoxic-appearing. Patient was further worked up with CBC, CMP, lipase, UA, urine , gallbladder ultrasound. CBC: No leukocytosis. No e/o of systemic infection. No e/o anemia. CMP: No e/o severe acidosis, alkalosis, renal failure, diabetic ketoacidosis, liver disease Lipase within normal limits. Urine: No leukocyte esterase, no nitrites, 3+ hematuria. Urine : Negative' IMPRESSION: Unremarkable right upper quadrant ultrasound. IMPRESSION: Unremarkable portable chest. X-rays negative for pneumonia, pneumothorax, pleural effusion. Gallbladder ultrasound does not show any cholelithiasis, cholecystitis. Since symptoms could likely be secondary to viral etiology. Patient reports that her symptoms improve after receiving Toradol 30 mg IV, 1 L normal saline. Low suspicion for ectopic , ovarian torsion, gastritis, GERD, peptic ulcer disease, cholecystitis, choledocholithiasis, cholangitis, pancreatitis, appendicitis, bowel obstruction, ileus, volvulus, nephrolithiasis, pyelonephritis, hepatitis, perforated viscus, diverticulitis, strangulated/incarcerated hernia, DKA, acute abdomen, mesenteric ischemia or other emergent conditions. Diagnosis: Abdominal pain, Cough, Headache, Vomiting Discharge medications: Fioricet, Zofran Follow up with primary care physician in 1-2 days for referral to gastr oenterologist. Instructed patient to return to the ED sooner for any worsening symptoms. Patient's questions were answered. Patient understood and agreed with discharge plan. Patient discharged stable. Departure Diagnosis: Primary Impression: Abdominal pain Abdominal location: unspecified location Qualified Codes: R10.9 - Unspecified abdominal pain Additional Impressions: Cough Headache Headache type: unspecified Headache chronicity pattern: unspecified pattern Intractability: not intractable Qualified Codes: R51 - Headache Vomiting Vomiting type: unspecified Vomiting Intractability: unspecified Nausea presence: unspecified Qualified Codes: R11.10 - Vomiting, unspecified Condition: Stable Patient Instructions: Abdominal Pain, Unknown Cause, (Female), Headache, Unspecified, Viral Syndrome (Adult) Referrals: [facility] YOU HAVE RECEIVED A MEDICAL SCREENING EXAM AND THE RESULTS INDICATE THAT YOU DO NOT HAVE A CONDITION THAT REQUIRES URGENT TREATMENT IN THE EMERGENCY DEPARTMENT. FURTHER EVALUATION AND TREATMENT OF YOUR CONDITION CAN WAIT UNTIL YOU ARE SEEN IN YOUR DOCTORS OFFICE WITHIN THE NEXT 1-2 DAYS. IT IS YOUR RESPONSIBILITY TO MAKE AN APPOINTMENT FOR FOLOW-UP CARE. IF YOU HAVE A PRIMARY DOCTOR --you should call your primary doctor and schedule an appointment IF YOU DO NOT HAVE A PRIMARY DOCTOR YOU CAN CALL OUR PHYSICIAN REFERRAL HOTLINE AT IF YOU CAN NOT AFFORD TO SEE A PHYSICIAN YOU CAN CHOSE FROM THE FOLLOWING [facility] [address] [facility]. [facility] [address] [facility] [address] [facility] [facility] [address] [facility] [facility] [address] [facility]. [facility]. [address] [facility]. [facility] YOU HAVE RECEIVED A MEDICAL SCREENING EXAM AND THE RESULTS INDICATE THAT YOU DO NOT HAVE A CONDITION THAT REQUIRES URGENT TREATMENT IN THE EMERGENCY DEPARTMENT. FURTHER EVALUATION AND TREATMENT OF YOUR CONDITION CAN WAIT UNTIL YOU ARE SEEN IN YOUR DOCTORS OFFICE WITHIN THE NEXT 1-2 DAYS. IT IS YOUR RESPONSIBILITY TO MAKE AN APPOINTMENT FOR FOLOW-UP CARE. IF YOU HAVE A PRIMARY DOCTOR --you should call your primary doctor and schedule and appointment IF YOU DO NOT HAVE A PRIMARY DOCTOR YOU CAN CALL OUR PHYSICIAN REFERRAL HOTLINE AT . IF YOU CAN NOT AFFORD TO SEE A PHYSICIAN YOU CAN CHOSE FROM THE FOLLOWING [facility] INSTITUTIONS: [facility] [address] [place] [address] [facility] [address] [place] [address] [facility] + [facility] [address] [place] [address] [facility] URGENT CARE/SPECIALTIES Additional Instructions: Llame al doctor MAANA y tea brian NEVIN PARA DENTRO DE 2-3 DURON.Dgale a la secretaria que nosotros le instruimos hacer esta nevin.Avise o llame si ward condicin se empeora antes de la nevin. Regresa aqui si peor o no mejor. JAJA HIGUERA PA-C Oct 29, 2018 17:01
== END 2018-10-29 16:58 | disposition home or self-care (01) ==
LOC: FTE 14:58
DX: R10.9 Unspecified abdominal pain (principal); R05 Cough; R51 Headache; R11.2 Nausea with vomiting, unspecified
CPT/HCPCS: 36415; 71045; 76705; 80053; 81001; 81025; 83690; 85025; 96374; 96375; J1885; J2405; J7040; Z7502

== ENCOUNTER 2019-02-10 11:47 | Emergency (ER) | payer MEDICAID ==
[~2019-02-10] VITALS: Ht 152.4 cm; Wt 86.5 kg
[~2019-02-10 11:47] MED LIST changes: +BENZ-6 PO; +BUTA1CAP38 PO; +ONDA4TAB14 PO
[2019-02-10 12:00] VITALS: BP 115/54; PULSE 82; RESP 18; Ht 152.4 cm; Wt 86.5 kg
--- NOTE | 2019-02-10 14:52 | ERD ---
ER Documentation Chief Complaint Chief Complaint FELL YESTERDAY AND HIT HEAD WITH LOC. HEADACHE AND NECK PAIN HPI 23-year-old [place]. She [place] her head and c omplains of neck pain, upper back pain headache. She states that she lost consciousness for unknown duration. She denies vomiting, visual changes, deficits. ROS All systems reviewed and are negative except as per history of present illness. Medications Home Meds Active Scripts Ibuprofen* (Motrin*) 600 Mg Tab, 600 MG PO Q6, #20 TAB Prov:LAURO DE MD 02/10/19 Benzonatate* (Tessalon Perle*) 100 Mg Capsule, 100 MG PO Q8H PRN for COUGH, #20 CAP Prov:JAJA HIGUERA PA-C 10/29/18 Ondansetron (Ondansetron Odt) 4 Mg Tab.rapdis, 4 MG PO Q6H PRN for NAUSEA AND/OR VOMITING, #10 TAB Prov:JAJA HIGUERA PA-C 10/29/18 Arufelejhc-Nsofsusdtaots-Lyztyylp* (Fioricet*) 50-300-40 Mg Capsule, 1 CAP PO Q4H PRN for HEADACHE, #20 CAP Prov:JAJA HIGUERA PA-C 10/29/18 Prednisone* (Prednisone*) 20 Mg Tab, 60 MG PO DAILY for 5 Days, TAB Prov:WHITNEY MOONEY NP 02/10/18 Triamcinolone Acetonide (Triamcinolone Acetonide) 0.1% - 15 Gm Cream.gm., 1 APPLIC TOP BID, #1 TUB Prov:WHITNEY MOONEY NP 02/10/18 Reported Medications Folic Acid (Folic Acid) 0.8 Mg Capsule, 0.8 MG PO DAILY, CAP 11/26/16 Vit W-Ca,Fe,FA(<1 mg) ( Vitamins) 1 Each Tablet, 1 EACH PO DAILY, TAB 11/26/16 Ferrous Sulfate* (Ferrous Sulfate*) 325 Mg Tabec, 325 MG PO DAILY, TAB 11/16/16 Pnv95/Ferrous Fumarate/FA ( Vitamins Tablet) 1 Each Tablet, 1 EACH PO, TAB 11/16/16 Ibuprofen* (Ibuprofen*) 600 Mg Tablet, 600 MG PO Q4 PRN for PAIN, TAB 04/22/14 Allergies Allergies: Coded Allergies: No Known Drug Allergies (Verified Allergy, Unknown, 02/10/18) PMhx/Soc History of Surgery: Yes () Anesthesia Reaction: No Hx Neurological Disorder: No Hx Respiratory Disorders: No Hx Cardiac Disorders: No Hx Psychiatric Problems: No Hx Miscellaneous Medical Probl: No Hx Alcohol Use: No Hx Substance Use: No Hx Tobacco Use: No Smoking Status: Never smoker FmHx Family History: diabetes Physical Exam Vitals Vital Signs Date Temp Pulse Resp B/P (MAP) Pulse Ox O2 O2 Flow FiO2 Time Delivery Rate 02/10/19 98.9 82 18 115/54 98 12:00 (74) Physical Exam Const: No acute distress Head: Atraumatic. Tenderness occiput without step-offs or deformities. Eyes: Normal Conjunctiva ENT: Normal External Ears, Nose and Mouth. Neck: Full range of motion. No meningismus. No cervical gil pinous muscle tenderness. No exquisite midline tenderness or deformities. Resp: Clear to auscultation bilaterally Cardio: Regular rate and rhythm, no murmurs Abd: Soft, non tender, non distended. Normal bowel sounds Skin: No petechiae or rashes Back: No midline or flank tenderness Ext: No cyanosis, or edema Neur: Awake and alert. Ambulatory with normal gait. No appreciable focal neurologic deficits. Cranial nerves II through XII grossly intact. Psych: Normal Mood and Affect Procedures/MDM CT brain read as normal. X-ray C spine 3V Interpreted by me: Bones: No fracture Joints: No dislocation Foreign body: None impression-normal C-spine x-ray Chest X-ray 1V Interpreted by me: Soft Tissue: No acute abnormalities Bones: No acute abnormalities Mediastinum/Cardiac Silhouette/Lungs: No acute abnormalities. Impression- normal 1 view chest x-ray Patient presents with headache, neck pain, upper back pain after mechanical fall yesterday. She has no signs of bleeding, fractures, neurologic deficits, additional concerning signs or symptoms. Will treat with ibuprofen, further observation at home and return precautions. The patient was stable with no new complaints during the ER course. Clinically, there is no current evidence to suggest meningitis, sepsis, acute abdomen, pneumonia, stroke, acute coronary syndrome, pulmonary embolism, aortic dissection or any other emergent condition appearing to require further evaluation or hospitalization. Patient counseled regarding my diagnostic impression and care plan. Prior to discharge all questions answered. Pt agrees with treatment plan and understands strict return precautions. Pt is instructed to follow up with primary care provider within 24- 48 hours. Precautionary instructions provided including instructions to return to the ER if not improving or for any worsening or changing symptoms or concerns. Disclaimer: Inadvertent spelling and grammatical errors are likely due to EHR/dictation software use and do not reflect on the overall quality of patient care. Also, please note that the electronic time recorded on this note does not necessarily reflect the actual time of the patient encounter. Departure Diagnosis: Primary Impression: Head injury Encounter type: initial encounter Qualified Codes: S09.90XA - Unspecified injury of head, initial encounter Additional Impression: Injury of neck Encounter type: initial encounter Qualified Codes: S19.9XXA - Unspecified injury of neck, initial encounter Condition: Stable Patient Instructions: Back Sprain/Strain, HEAD INJURY, No Wake-Up (Adult) Additional Instructions: Examines normal hoy. Cheque otro vez con ward doctor primario en el proximo luong or regresa para mas o nueva simptomas. LAURO DE MD Feb 10, 2019 14:52
== END 2019-02-10 14:49 | disposition home or self-care (01) ==
LOC: E/R 11:47
DX: S09.90XA Unspecified injury of head, initial encounter (principal); S19.9XXA Unspecified injury of neck, initial encounter; R51 Headache; R07.9 Chest pain, unspecified; W01.10XA Fall on same level from slipping, tripping and stumbling with subsequent striking against unspecified object, initial encounter; Y92.832 Beach as the place of occurrence of the external cause
CPT/HCPCS: 70450; 71045; 72040

== ENCOUNTER 2019-03-08 01:42 | Emergency (ER) | payer MEDICAID ==
[~2019-03-08] VITALS: Ht 157.5 cm; Wt 85.7 kg
[2019-03-08 01:44] VITALS: Ht 157.5 cm; Wt 85.7 kg
[2019-03-08] MEDS ORDERED: ONDANSETRON 4 MG INJ IV STA (01:58)
[2019-03-08] MEDS ORDERED: SOD CHLORIDE 0.9% 1,000 ML IV STA (01:58)
[2019-03-08] MEDS ORDERED: KETOROLAC 30 MG INJ IV STA (01:58)
[2019-03-08 03:49] VITALS: BP 114/84; PULSE 64; RESP 16
== END 2019-03-08 03:48 | disposition home or self-care (01) ==
LOC: FTE 01:42
DX: R51 Headache (principal); R11.2 Nausea with vomiting, unspecified
CPT/HCPCS: 36415; 81001; 81003; 81025; 85025; 96361; 96374; 96375; J1885; J2405; J7030; Z7502